=== PATIENT | female | born 1960 | race Caucasian/White ===

== ENCOUNTER → 2018-05-04 10:33 | Outpatient (CLI) | payer OTHER, SELFPAY ==
[2018-05-04 12:25] LABS: Absolute Lymphocyte Count 1.89 X10^3/ul (0.83-4.51); Absolute Neutrophil Count 6.8 X10^3/uL (2.0-7.7); Basophil# 0.03 X10^3/uL; Basophil% 0.3 % (0-1); Eosinophil# 0.05 X10^3/uL; Eosinophils% 0.5 % (0-5); Hematocrit 42.5 % (37-47); Hemoglobin 14.2 g/dl (12.0-15.0); Lymphocyte # 1.89 X10^3/ul (4.0); Lymphocyte % 19.9 % (19-41); Mean Corp Hgb Conc 33.4 g/gl (32-36); Mean Corpuscular Hgb 31.5 pg (27.0-32.0); Mean Corpuscular Volume 94.2 fL (81-99); Mean Platelet Vol. 10.7 fl (6.2-12.0); Monocyte# 0.68 X10^3/uL; Monocyte% 7.2 % (0-10); Neutrophil # 6.82 X10^3/uL (2.7-7.7); Neutrophil % 71.9 % (47-70); Platelet Count 285 K/mm3 (150-450); RBC Distribution Width CV 13.3 % (11.6-14.6); RBC Distribution Width SD 44.4 fl (35.1-43.9); Red Blood Count 4.51 M/mm3 (4.2-5.4); White Blood Count 9.5 K/mm3 (4.4-11.0)
[2018-05-04 12:26] LABS: POSITIVE COUNT NO; POSITIVE DIFFERENTIAL NO; POSITIVE MORPHOLOGY NO
[2018-05-04 12:53] LABS: Vitamin B12 471 pg/mL (211-911)
[2018-05-04 12:54] LABS: ALB/GLOB Ratio 1.1 RATIO (0.9-2.4); AST(SGOT) 21 U/L (15-37); Alanine Aminotransfer ALT/SGPT 26 U/L (13-56); Albumin, Serum 3.9 g/dL (3.2-5.0); Alkaline Phosphatase 116 U/L (45-117); Anion Gap 6 (5-15); BUN 13 mg/dL (7-18); BUN/Creat Ratio 23.9 RATIO (10-20); Calcium,Total 8.7 mg/dL (8.5-10.1); Chloride 106 mmol/L (98-107); Creatinine, Serum 0.54 mg/dL (0.55-1.02); EST Glomerular Filtration Rate 123 mL/min (>60); Est Glom Filt Rate - Afr Amer 149 mL/min (>60); Globulin 3.5 g/dL (2.2-4.2); Glucose 91 mg/dL (74-106); Potassium 4.1 mmol/L (3.5-5.1); Protein, Total 7.4 g/dL (6.4-8.2); Sodium Level 139 mmol/L (136-145); T4 Free Direct 0.83 ng/dL (0.76-1.46); Thyroid Stim Hormone (TSH) 2.11 uIU/mL (0.358-3.74)
== END ==
PROVIDERS: Family Provider Family Medicine; PCP Family Medicine; Visit Provider Family Medicine
DX: K52.9 Noninfective gastroenteritis and colitis, unspecified (principal); F41.9 Anxiety disorder, unspecified; F32.9 Major depressive disorder, single episode, unspecified; R53.83 Other fatigue
CPT/HCPCS: 36415; 80053; 82607; 84439; 84443; 85025

== ENCOUNTER → 2018-09-17 07:11 | Outpatient (CLI) | payer MEDICAID, SELFPAY ==
--- NOTE | 2018-09-17 07:15 | AAVD_ITS ---
Reason For Study: atherosclerois of aorta, rt illiac stenosis/stent. Aorta Measurements Proximal aorta measures1.77 x 1.78cm. in cross- sectional axis. Proximal aorta measures2.0cm. in longitudinal axis. Mid aorta measures1.55 x 1.56cm. in cross- sectional axis. Mid aorta measures1.52cm. in longitudinal axis. Distal aorta measures1.49 x 1.5cm. in cross- sectional axis. Distal aorta measures1.4cm. in longitudinal axis. Left Iliac Artery Left iliac artery measures 0.65 cm. in the longitudinal axis. Left iliac artery measures 0.67 x 0.75 cm. in the cross-sectional axis. Right Iliac Artery Right iliac artery measures 0.63 cm. in the longitudinal axis. Right iliac artery measures 0.65 x 0.64 cm. in the cross-sectional axis. Procedure Aorta IVC Iliac vasculature or bypass grafts [id number]. Exam performed in department. Interpretation Summary 1. no aortoiliac stenosis or aneurysm. Ordering Physician: Beni Judd Referring Physician: Beni Judd Performed By: Susie Everett, HAILEY, RVT
--- NOTE | 2018-09-17 07:15 | ART_ITS ---
Reason For Study: atherosclerosis Procedure A bilateral lower extremity continuous wave Doppler with analog waveform analysis and ankle brachial indexes. Left Segmental Pressures Left brachial= 118mmHg. Left posterior tibial artery = 142mmHg. Left dorsalis pedis artery = 150mmHg. Right Segmental Pressures Right brachial= 123mmHg. Right posterior tibial artery = 140mmHg. Right dorsalis pedis artery = 141mmHg. Indices The right ankle brachial index by the dorsalis pedis is 1.15. The right ankle brachial index by the posterior tibial artery is 1.14. The left ankle brachial index by the dorsalis pedis is 1.22. The left ankle brachial index by the posterior tibial artery is 1.15. Interpretation Summary 1. No evidence occlussive disease at rest with triphasic flow and joe 1.15/1.22. Ordering Physician: Beni Judd Referring Physician: Beni Judd Performed By: Susie Everett RVT, [facility]
--- NOTE | 2018-09-17 07:16 | ADUL_ITS ---
Right Velocities Ext. Iliac Artery, dist = 182.7 cm./sec. Common Femoral Artery, mid = 110.8 cm./sec. Supf Femoral Artery, prox = 81.4 cm./sec. Supf Femoral Artery, mid = 81.4 cm./sec. Supf Femoral Artery, dist. = 96.1 cm./sec. Profunda Femoral Artery = 82.6 cm./sec. Popliteal Artery, prox. = 49.4 cm./sec. Popliteal Artery, mid = 61.4 cm./sec. Popliteal Artery, dist = 77.9 cm./sec. Post. Tibial Artery, prox = 74.6 cm./sec. Post. Tibial Artery, mid = 65.4 cm./sec. Post. Tibial Artery, dist = 71.3 cm./sec. Peroneal Artery, prox = 58.1 cm./sec. Peroneal Artery, mid = 49.3 cm./sec. Peroneal Artery,dist = 46.0 cm./sec. Ant. Tibial Artery, prox = 64.6 cm./sec. Ant. Tibial Artery, mid = 54.8 cm./sec. Ant. Tibial Artery, dist = 59.2 cm./sec. Procedure The exam was diagnostic. Exam performed in department. Comments Images #[id number] &#51 are mislabeled. Correct label is Right CORY Prox. Interpretation Summary 1. right leg no stenosis and triphasic flow. Ordering Physician: Beni Judd Referring Physician: Beni Judd Performed By: Susie Everett, HAILEY, RVT
== END ==
PROVIDERS: Family Provider Family Medicine; PCP Family Medicine; Referring Provider Surgery Vascular Surgery; Visit Provider Surgery Vascular Surgery
DX: I70.0 Atherosclerosis of aorta (principal); I77.1 Stricture of artery; I70.213 Atherosclerosis of native arteries of extremities with intermittent claudication, bilateral legs
CPT/HCPCS: 93922; 93926; 93978

== ENCOUNTER → 2019-03-02 | Outpatient (CLI) | payer MEDICAID, SELFPAY ==
[2019-01-31 13:04] VITALS: BMI 21.7
== END | disposition home or self-care (01) ==
LOC: SL 20:13
PROVIDERS: Family Provider Family Medicine; PCP Family Medicine; Referring Provider Internal Medicine Critical Care Medicine; Visit Provider Internal Medicine Critical Care Medicine
DX: G47.19 Other hypersomnia (principal); G47.34 Idiopathic sleep related nonobstructive alveolar hypoventilation
CPT/HCPCS: 95810

== ENCOUNTER → 2019-03-31 | Outpatient (CLI) | payer MEDICAID, SELFPAY ==
[2019-01-31 13:04] VITALS: BMI 21.7
[2019-03-31 08:33] VITALS: PULSE 102; PULSE 88; PULSE 89; PULSE 90; PULSE 91; PULSE 94; PULSE 99; O2SAT 95; O2SAT 96; O2SAT 97; O2SAT 98
--- NOTE | 2019-03-31 15:53 | PCM.PSN.6M ---
PSN 6 Minute Walk Test - 6 Minute Walk Test 6 Minute Walk Test: 6 Minute Walk Test PSN:6-Minute Walk Test Start: 03/31/19 08:33 Freq: Status: Active Protocol: RESP.6MINW Document 03/31/19 08:33 HG (Rec: 03/31/19 08:36 HG [id number]) 6 Minute Walk Test Date Performed 03/31/19 Time Performed 08:30 Height 5 ft 7 in Weight: 63.503 kg Weight in Pounds 140.[address]: Ester Hernandez Assistive device used: None Pre-test Oxygen Delivery Method Room Air Pulse Ox (%) 96 Pulse Rate (60-100 beats/min) 88 Dyspnea Abe Scale (0-10) 1 Exertion Abe Scale (6-20) 6 1st minute Oxygen Delivery Method Room Air Pulse Ox (%) 97 Pulse Rate (60-100 beats/min) 99 2nd minute Oxygen Delivery Method Room Air Pulse Ox (%) 95 Pulse Rate (60-100 beats/min) 102 H 3rd minute Oxygen Delivery Method Room Air Pulse Ox (%) 98 Pulse Rate (60-100 beats/min) 94 4th minute Oxygen Delivery Method Room Air Pulse Ox (%) 97 Pulse Rate (60-100 beats/min) 94 5th minute Oxygen Delivery Method Room Air Pulse Ox (%) 96 Pulse Rate (60-100 beats/min) 91 6th minute Oxygen Delivery Method Room Air Pulse Ox (%) 97 Pulse Rate (60-100 beats/min) 90 Post-test Oxygen Delivery Method Room Air Pulse Ox (%) 98 Pulse Rate (60-100 beats/min) 89 Dyspnea Abe Scale (0-10) 1 Exertion Abe Scale (6-20) 6 Full Laps Walked 18 Partial Lap, Number of Tiles Walked 0 Total Distance Walked (ft) 1062 - Interpretation Interpretation: The patient was able to ambulate 1062 feet over the course of 6 minutes on room air with no assistive devices or breaks. The patient experienced no significant desaturation or tachycardia. These findings are consistent with a musculoskeletal limitation exercise tolerance. - Recommendations Recommendations: No supplemental oxygen is indicated at this time.
== END | disposition home or self-care (01) ==
LOC: PSN 08:16
PROVIDERS: Family Provider Family Medicine; PCP Family Medicine; Referring Provider Nurse Practitioner Acute Care; Visit Provider Nurse Practitioner Acute Care
DX: J44.9 Chronic obstructive pulmonary disease, unspecified (principal)
CPT/HCPCS: 94618

== ENCOUNTER → 2019-04-08 | Outpatient (CLI) | payer MEDICAID, SELFPAY ==
[2019-01-31 13:04] VITALS: BMI 21.7
== END | disposition home or self-care (01) ==
LOC: BFHLAB 13:47
PROVIDERS: Family Provider Family Medicine; PCP Family Medicine; Visit Provider Family Medicine
DX: N10 Acute pyelonephritis (principal)
CPT/HCPCS: 87086; 87088

== ENCOUNTER → 2019-05-13 10:12 | Outpatient (CLI) | payer MEDICAID, SELFPAY ==
[2019-05-13 09:52] VITALS: BMI 21.7
[2019-05-13 10:56] LABS: Hemoglobin 15.4 g/dL (12.0-15.0); Mean Corp Hgb Conc 33.5 g/dL (32-36); Mean Corpuscular Hgb 31.4 pg (27.0-32.0); Mean Corpuscular Volume 93.7 fL (81-99); Mean Platelet Vol. 9.3 fl (6.2-12.0); Platelet Count 283 K/mm3 (150-450); RBC Distribution Width CV 12.6 % (11.6-14.6); RBC Distribution Width SD 43.8 fl (35.1-43.9); Red Blood Count 4.91 M/mm3 (4.2-5.4); White Blood Count 7.9 K/mm3 (4.4-11.0)
[2019-05-13 11:16] LABS: Ferritin 165 ng/mL (8-252); Iron Binding Capacity,Total 384 ug/dL (250-450)
[2019-05-16 21:17] LABS: Vitamin D 1,25-Dihydroxy 40.5 pg/mL (19.9-79.3)
== END ==
PROVIDERS: Family Provider Family Medicine; PCP Family Medicine; Referring Provider Nurse Practitioner Acute Care; Visit Provider Nurse Practitioner Acute Care
DX: G47.19 Other hypersomnia (principal)
CPT/HCPCS: 36415; 82652; 82728; 83550; 85027

== ENCOUNTER → 2020-09-21 08:37 | Outpatient (CLI) | payer MEDICAID, SELFPAY ==
[2019-05-13 09:52] VITALS: BMI 21.7
--- NOTE | 2020-09-21 08:41 | ADUL_ITS ---
Reason For Study: Tobacco Use Right Velocities Ext. Iliac Artery, dist = 181 cm./sec. Common Femoral Artery, mid = 117 cm./sec. Supf Femoral Artery, prox = 76 cm./sec. Supf Femoral Artery, mid = 87 cm./sec. Supf Femoral Artery, dist. = 74 cm./sec. Profunda Femoral Artery = 85 cm./sec. Popliteal Artery, prox. = 60 cm./sec. Popliteal Artery, mid = 54 cm./sec. Popliteal Artery, dist = 56 cm./sec. Ant. Tibial Artery, prox = 39 cm./sec. Ant. Tibial Artery, mid = 52 cm./sec. Ant. Tibial Artery, dist = 67 cm./sec. Post. Tibial Artery, prox = 60 cm./sec. Post. Tibial Artery, mid = 63 cm./sec. Post. Tibial Artery, dist = 50 cm./sec. Peroneal Artery, prox = 41 cm./sec. Peroneal Artery, mid = 32 cm./sec. Peroneal Artery,dist = 19 cm./sec. Rt DPA: 63 cm/s. Procedure Exam performed in department. /US Art Duplex Unilat Lower Ext Interpretation Summary Right leg with triphasic flow and no stenosis. Ordering Physician: Beni Judd Referring Physician: Herson Curiel Performed By: Juana Hurley, HAILEY, RVT
--- NOTE | 2020-09-21 08:42 | AAVD_ITS ---
Reason For Study: Tobacco Use Aorta Measurements Aorta Doppler Measurements Proximal aorta measures2.74cm x 2.55cm. in cross- Peak systolic flow velocities within the proximal sectional axis. aorta measure 74 cm/sec. Proximal aorta measures2.34cm. in longitudinal Peak systolic flow velocities within the mid aorta axis. measure 62 cm/sec. Mid aorta measures1.74cm x 1.57cm. in cross- Peak systolic flow velocities within the distal sectional axis. aorta measure 70 cm/sec. Mid aorta measures1.62cm. in longitudinal axis. Distal aorta measures1.48cm x 1.50cm. in cross- sectional axis. Distal aorta measures1.29cm. in longitudinal axis. Left Iliac Artery Left iliac artery measures 0.74cm x 0.75 cm. in the cross-sectional axis. Left iliac artery measures 0.71 cm. in the longitudinal axis. Peak systolic velocity in the left iliac artery measures 127 cm/sec. Right Iliac Artery Right iliac artery measures 0.60cm x 0.55 cm. in the cross-sectional axis. Right iliac artery measures 0.55 cm. in the longitudinal axis. Peak systolic velocity in the right iliac artery measures 203 cm/sec. Procedure Aorta IVC Iliac vasculature or bypass grafts [id number]. Exam performed in department. VL/Abd Aortic/IVC Duplex scan Interpretation Summary Aortoiliac with no stenosis and no aneurysm. Ordering Physician: Beni Judd Referring Physician: Herson Curiel Performed By: Juana Hurley, HAILEY, RVT
== END ==
PROVIDERS: PCP Family Medicine; Referring Provider Surgery Vascular Surgery; Visit Provider Surgery Vascular Surgery
DX: I70.213 Atherosclerosis of native arteries of extremities with intermittent claudication, bilateral legs (principal); F17.200 Nicotine dependence, unspecified, uncomplicated
CPT/HCPCS: 93922; 93926; 93978

== ENCOUNTER → 2020-10-09 07:44 | Outpatient (CLI) | payer MEDICAID, SELFPAY ==
[2019-05-13 09:52] VITALS: BMI 21.7
[2020-10-09 10:12] LABS: Absolute Lymphocyte Count 2.25 X10^3/uL (0.83-4.51); Absolute Neutrophil Count 3.7 X10^3/uL (2.0-7.7); Basophil# 0.05 X10^3/uL; Basophil% 0.7 % (0-1); Eosinophil# 0.12 X10^3/uL; Eosinophils% 1.8 % (0-5); Hematocrit 48.5 % (37-47); Hemoglobin 15.6 g/dL (12.0-15.0); Lymphocyte # 2.25 X10^3/ul (0.83-4.51); Lymphocyte % 33.6 % (19-41); Mean Corp Hgb Conc 32.2 g/dL (32-36); Mean Corpuscular Hgb 29.5 pg (27.0-32.0); Mean Corpuscular Volume 91.7 fL (81-99); Mean Platelet Vol. 9.9 fl (6.2-12.0); Monocyte# 0.61 X10^3/uL; Monocyte% 9.1 % (0-10); NRBC Flagged by Analyzer 0 % (0-5); Neutrophil # 3.65 X10^3/uL (2.7-7.7); Neutrophil % 54.5 % (47-70); Platelet Count 257 K/mm3 (150-450); RBC Distribution Width CV 13.9 % (11.6-14.6); RBC Distribution Width SD 47.3 fl (35.1-43.9); Red Blood Count 5.29 M/mm3 (4.2-5.4); White Blood Count 6.7 K/mm3 (4.4-11.0)
[2020-10-09 10:38] LABS: AST(SGOT) 25 U/L (15-37); Alanine Aminotransfer ALT/SGPT 32 U/L (13-56); Albumin, Serum 3.9 g/dL (3.2-5.0); Alkaline Phosphatase 116 U/L (45-117); Anion Gap 5 (5-15); BUN 14 mg/dL (7-18); BUN/Creat Ratio 29.8 RATIO (10-20); Calcium,Total 9.3 mg/dL (8.5-10.1); Chloride 101 mmol/L (98-107); Cholesterol 214 mg/dL (200); Creatinine, Serum 0.47 mg/dL (0.55-1.02); EST Glomerular Filtration Rate 144 mL/min (>60); Est Glom Filt Rate - Afr Amer 174 mL/min (>60); Globulin 3.8 g/dL (2.2-4.2); Glucose 94 mg/dL (74-106); High Density Lipoprotein 60 mg/dL; Protein, Total 7.7 g/dL (6.4-8.2); Sodium Level 136 mmol/L (136-145); T4 Free Direct 0.86 ng/dL (0.76-1.46); Thyroid Stim Hormone (TSH) 2.13 uIU/mL (0.358-3.74); Triglycerides 170 mg/dL; Very Low Density Lipoprotein 34 mg/dL (5-40)
== END ==
PROVIDERS: PCP Family Medicine; Referring Provider Family Medicine; Visit Provider Family Medicine
DX: G25.81 Restless legs syndrome (principal); F41.9 Anxiety disorder, unspecified; R53.83 Other fatigue
CPT/HCPCS: 36415; 80053; 80061; 84439; 84443; 85025

== ENCOUNTER → 2021-12-03 | Outpatient (CLI) | payer MEDICAID, SELFPAY ==
--- NOTE | 2021-12-03 08:07 | AAVD_ITS ---
Reason For Study: atherosclerosis with claudication, S/P R iliac stent Aorta Measurements Aorta Doppler Measurements Proximal aorta measures2.43 x 2.61cm. in cross- Peak systolic flow velocities within the proximal sectional axis. aorta measure 57.2 cm/sec. Proximal aorta measures2.28cm. in longitudinal Peak systolic flow velocities within the mid aorta axis. measure 62.5 cm/sec. Mid aorta measures1.75 x 1.9cm. in cross-sectionalPeak systolic flow velocities within the distal axis. aorta measure 69.5 cm/sec. Mid aorta measures1.71cm. in longitudinal axis. Distal aorta measures1.02 x 1.12cm. in cross- sectional axis. Distal aorta measures1.01cm. in longitudinal axis. Left Iliac Artery Left iliac artery measures .66 x .68 cm. in the cross-sectional axis. Left iliac artery measures .67 cm. in the longitudinal axis. Peak systolic velocity in the left iliac artery measures 67.1 cm/sec. Right Iliac Artery Right iliac artery measures .47 x .45 cm. in the cross-sectional axis. Right iliac artery measures .49 cm. in the longitudinal axis. Peak systolic velocity in the right iliac artery measures 89.2 cm/sec. Procedure Aorta IVC Iliac vasculature or bypass grafts [id number]. The exam was diagnostic. Exam performed in department. VL/Abd Aortic/IVC Duplex scan Interpretation Summary No evidence of aortic iliac stenosis or aneurysm. Ordering Physician: Beni Judd Performed By: Darrell Landry RVT
--- NOTE | 2021-12-03 08:08 | ADUL_ITS ---
Reason For Study: atherosclerosis with claudication, S/P R iliac stent Right Velocities Ext. Iliac Artery, dist = 165.5 cm./sec. Common Femoral Artery, mid = 97.9 cm./sec. Supf Femoral Artery, prox = 101.5 cm./sec. Supf Femoral Artery, mid = 90.4 cm./sec. Supf Femoral Artery, dist. = 68.3 cm./sec. Profunda Femoral Artery = 101.5 cm./sec. Popliteal Artery, mid = 59.7 cm./sec. Ant. Tibial Artery, prox = 74.4 cm./sec. Ant. Tibial Artery, mid = 43.5 cm./sec. Ant. Tibial Artery, dist = 62.2 cm./sec. Post. Tibial Artery, prox = 63.4 cm./sec. Post. Tibial Artery, mid = 48.6 cm./sec. Post. Tibial Artery, dist = 62.1 cm./sec. Peroneal Artery, prox = 47.4 cm./sec. Peroneal Artery, mid = 42.5 cm./sec. Peroneal Artery,dist = 37.6 cm./sec. Procedure The exam was diagnostic. Exam performed in department. VL/US Art Duplex Unilat Lower Ext Interpretation Summary Right lower extremity with triphasic flow noted throughout the entire leg. No s tenosis noted. Ordering Physician: Beni Judd Performed By: Darrell Landry RVT
--- NOTE | 2021-12-03 08:09 | ART_ITS ---
Reason For Study: atherosclerosis with claudication, S/P R iliac stent Procedure A bilateral lower extremity continuous wave Doppler with analog waveform analysis and ankle brachial indexes. Left Segmental Pressures Left brachial= 141mmHg. Left posterior tibial artery = 147mmHg. Left dorsalis pedis artery = 141mmHg. The left dorsalis pedis waveforms are triphasic. The left posterior tibial artery waveforms are triphasic. Right Segmental Pressures Right brachial= 135mmHg. Right posterior tibial artery = 152mmHg. Right dorsalis pedis artery = 131mmHg. The right dorsalis pedis waveforms are triphasic. The right posterior tibial artery waveforms are triphasic. Indices The right ankle brachial index by the dorsalis pedis is .93. The right ankle brachial index by the posterior tibial artery is 1.08. The left ankle brachial index by the posterior tibial artery is 1.04. The left ankle brachial index by the dorsalis pedis is 1.0. VL/Ankle Brachial Index Interpretation Summary Bilateral triphasic flow noted at the ankle with an MYRANDA 1.08 and 1.04. Ordering Physician: Beni Judd Performed By: Darrell Landry RVT
== END | disposition home or self-care (01) ==
LOC: CVS 08:05
PROVIDERS: PCP Family Medicine; Referring Provider Surgery Vascular Surgery; Visit Provider Surgery Vascular Surgery
DX: I70.213 Atherosclerosis of native arteries of extremities with intermittent claudication, bilateral legs (principal); F17.200 Nicotine dependence, unspecified, uncomplicated; Z48.812 Encounter for surgical aftercare following surgery on the circulatory system
CPT/HCPCS: 93922; 93926; 93978

== ENCOUNTER → 2022-05-19 | Outpatient (CLI) | payer MEDICAID, SELFPAY ==
[2022-05-19 12:28] LABS: Absolute Lymphocyte Count 2.77 X10^3/uL (0.83-4.51); Absolute Neutrophil Count 7.3 X10^3/uL (2.0-7.7); Basophil# 0.05 X10^3/uL; Basophil% 0.5 % (0-1); Eosinophil# 0.11 X10^3/uL; Hematocrit 48.5 % (37-47); Lymphocyte # 2.77 X10^3/ul (0.83-4.51); Mean Corpuscular Hgb 31.3 pg (27.0-32.0); Mean Corpuscular Volume 94.7 fL (81-99); Mean Platelet Vol. 10.2 fl (6.2-12.0); Monocyte# 0.78 X10^3/uL; Monocyte% 7.1 % (0-10); NRBC Flagged by Analyzer 0 % (0-5); Neutrophil # 7.32 X10^3/uL (2.7-7.7); Neutrophil % 66.1 % (47-70); Platelet Count 313 K/mm3 (150-450); RBC Distribution Width CV 13.3 % (11.6-14.6); RBC Distribution Width SD 46.5 fl (35.1-43.9); Red Blood Count 5.12 M/mm3 (4.2-5.4); White Blood Count 11.1 K/mm3 (4.4-11.0)
[2022-05-19 13:05] LABS: ALB/GLOB Ratio 1.2 RATIO (0.9-2.4); AST(SGOT) 21 U/L (15-37); Alanine Aminotransfer ALT/SGPT 31 U/L (13-56); Albumin, Serum 4.3 g/dL (3.2-5.0); Alkaline Phosphatase 93 U/L (45-117); Anion Gap 4 (5-15); BUN 16 mg/dL (7-18); BUN/Creat Ratio 32.6 RATIO (10-20); Calcium,Total 9.7 mg/dL (8.5-10.1); Chloride 100 mmol/L (98-107); Cholesterol 256 mg/dL (200); Creatinine, Serum 0.49 mg/dL (0.55-1.02); EST Glomerular Filtration Rate 136 mL/min (>60); Est Glom Filt Rate - Afr Amer 165 mL/min (>60); Globulin 3.7 g/dL (2.2-4.2); Glucose 91 mg/dL (74-106); High Density Lipoprotein 60 mg/dL; Magnesium 2.1 mg/dL (1.6-2.6); Potassium 4.1 mmol/L (3.5-5.1); Sodium Level 135 mmol/L (136-145); Thyroid Stim Hormone (TSH) 3.78 uIU/mL (0.358-3.74); Triglycerides 382 mg/dL; Very Low Density Lipoprotein 76 mg/dL (5-40)
== END | disposition home or self-care (01) ==
LOC: BFHLAB 08:42
PROVIDERS: PCP Family Medicine; Visit Provider Family Medicine
DX: Z00.00 Encounter for general adult medical examination without abnormal findings (principal); R53.83 Other fatigue
CPT/HCPCS: 36415; 80053; 80061; 83735; 84443; 85025

== ENCOUNTER → 2022-05-26 | Outpatient (CLI) | payer MEDICAID, SELFPAY ==
--- NOTE | 2022-05-26 14:56 | CDU_ITS ---
Reason For Study: PVD Rt. Velocities/BP Lt. Velocities/BP Prox CCA 86.3/23.9 cm/sec. Prox CCA 109.7/34.8 cm/sec. Mid CCA 86.3/26.7 cm/sec. Mid CCA 109.7/28.6 cm/sec. Dist CCA 79.6/26.7 cm/sec. Dist CCA 82.6/22.5 cm/sec. Prox ICA 96/32.2 cm/sec. Prox ICA 74/27.4 cm/sec. Mid ICA 102.5/36.6 cm/sec. Mid ICA 90/39.7 cm/sec. Dist ICA 108.4/47 cm/sec. Dist ICA 107.2/42.1 cm/sec. Rt. ICA/CCA = 1.26. Lt. ICA/CCA = 0.98. Prox ECA 87.2/17.9 cm/sec. Prox ECA 102.3 cm/sec. Rt. Vert. 65.4/18.8 cm/sec. Lt. Vert. 70.4/26.2 cm/sec. Right Extracranial There is heterogeneous, irregular atherosclerotic plaque noted in the right common carotid artery. There is heterogeneous, irregular atherosclerotic plaque noted in the right internal carotid artery. There is intimal thickening but no significant atherosclerotic plaque noted in the right external carotid artery. Antegrade flow is noted in the right vertebral artery. Left Extracranial There is homogeneous, smooth atherosclerotic plaque noted in the left common carotid artery. There is heterogeneous, irregular atherosclerotic plaque noted in the left internal carotid artery. There is intimal thickening but no significant atherosclerotic plaque noted in the left external carotid artery. Antegrade flow is noted in the left vertebral artery. Procedure Carotid Duplex [id number]. This is a Carotid Duplex examination using B-mode, color flow and specral Doppler. Exam performed in department. VL/Carotid Duplex Ultrasound Interpretation Summary Mild (<50%) stenosis right extracranial internal carotid. Mild (<50%) stenosis left extracranial internal carotid. Flow within the vertebral arteries is antegrade bilaterally. Ordering Physician: Dena Adam Referring Physician: Herson Curiel Performed By: Rosalind Barroso RVT
== END | disposition home or self-care (01) ==
LOC: CVS 14:56
PROVIDERS: PCP Family Medicine; Visit Provider Family Medicine
DX: I73.9 Peripheral vascular disease, unspecified (principal); I65.23 Occlusion and stenosis of bilateral carotid arteries
CPT/HCPCS: 93880

== ENCOUNTER → 2022-08-08 | Outpatient (CLI) | payer MEDICAID, SELFPAY ==
[2022-08-08 18:29] LABS: Free T3 2.5 pg/mL (2.18-3.98); T4 Free Direct 0.96 ng/dL (0.76-1.46); Thyroid Stim Hormone (TSH) 1.79 uIU/mL (0.358-3.74)
== END | disposition home or self-care (01) ==
LOC: BFHLAB 14:38
PROVIDERS: PCP Family Medicine; Visit Provider Family Medicine
DX: E03.9 Hypothyroidism, unspecified (principal)
CPT/HCPCS: 36415; 84439; 84443; 84481

== ENCOUNTER → 2022-08-12 | Outpatient (CLI) | payer MEDICAID, SELFPAY ==
--- NOTE | 2022-08-12 13:38 | BI_ITS ---
MAMMOGRAPHY - BILATERAL SCREENING REASON FOR EXAM: Female, 61 years old. Routine annual screening examination. PERTINENT HISTORY: Non-contributory. Remote right stereotactic breast biopsy. TECHNIQUE: Digital bilateral breast monica (3D mammographic acquisition) in the CC and MLO projections. 2-D mediolateral oblique (MLO) and craniocaudad (CC) views of both breasts were obtained. CAD: Full Field Digital Mammography with Computer Added Detection was performed. COMPARISON: No comparison mammograms available at this time. If any prior films become available, an addendum to this report can be generated. FINDINGS: Breast Composition: The breasts are heterogeneously dense, which may obscure small masses. There are no dominant masses or suspicious calcifications. A tissue clip marker is seen in the deep upper lateral aspect of the right breast. 4.9 mm calcifying fibroadenoma in the central retroareolar region of the left breast. No other significant abnormalities are identified. BI/SCRN MAMM (CAD)W/MONICA BILAT IMPRESSION: Negative screening mammogram. Yearly followup mammogram recommended. (A) ASSESSMENT CATEGORY: BIRADS Category 2: Benign. A letter regarding these results will be sent to the patient by the facility within 30 days. Approximately 10% of breast cancers are not detected by mammography. A normal mammogram should not delay biopsy of a clinically suspicious abnormality. [id number] Electronically Signed: Suresh Mendez MD at 14:57 EST ,
== END | disposition home or self-care (01) ==
LOC: OPBI 13:36
PROVIDERS: PCP Family Medicine; Referring Provider Family Medicine; Visit Provider Family Medicine
DX: Z12.31 Encounter for screening mammogram for malignant neoplasm of breast (principal)
CPT/HCPCS: 77063; 77067

== ENCOUNTER → 2022-12-09 | Outpatient (CLI) | payer MEDICAID, SELFPAY ==
--- NOTE | 2022-12-09 08:47 | CDU_ITS ---
Reason For Study: Carotid stenosis Rt. Velocities/BP Lt. Velocities/BP Prox CCA 65.5/23 cm/sec. Prox CCA 91.9/29.8 cm/sec. Mid CCA 76.8/28.6 cm/sec. Mid CCA 80.9/27.9 cm/sec. Dist CCA 73/29.6 cm/sec. Dist CCA 93.7/31.6 cm/sec. Prox ICA 104.7/42.6 cm/sec. Prox ICA 59/22.5 cm/sec. Mid ICA 88.2/33.4 cm/sec. Mid ICA 117.4/48 cm/sec. Dist ICA 86.4/38.9 cm/sec. Dist ICA 84.6/37.1 cm/sec. Rt. ICA/CCA = 1.43. Lt. ICA/CCA = 1.28. Prox ECA 110.1/24.3 cm/sec. Prox ECA 104.7/24.3 cm/sec. Rt. Vert. 57.2/22.5 cm/sec. Lt. Vert. 70/24.3 cm/sec. Right Extracranial There is heterogeneous, irregular atherosclerotic plaque noted in the right common carotid artery. There is heterogeneous, irregular atherosclerotic plaque noted in the right internal carotid artery. There is intimal thickening but no significant atherosclerotic plaque noted in the right external carotid artery. Antegrade flow is noted in the right vertebral artery. Left Extracranial There is homogeneous, smooth atherosclerotic plaque noted in the left common carotid artery. There is heterogeneous, irregular atherosclerotic plaque noted in the left internal carotid artery. There is intimal thickening but no significant atherosclerotic plaque noted in the left external carotid artery. Antegrade flow is noted in the left vertebral artery. Procedure Carotid Duplex [id number]. This is a Carotid Duplex examination using B-mode, color flow and specral Doppler. Exam performed in department. VL/Carotid Duplex Ultrasound Interpretation Summary Mild (<50%) stenosis right extracranial internal carotid. Mild (<50%) stenosis left extracranial internal carotid. Flow within the vertebral arteries is antegrade bilaterally. Ordering Physician: Beni Judd Referring Physician: Dena Adam Performed By: Rosalind Barroso RVT
--- NOTE | 2022-12-09 08:47 | ART_ITS ---
Reason For Study: Atherosclerosis Procedure A bilateral lower extremity continuous wave Doppler with analog waveform analysis and ankle brachial indexes. Left Segmental Pressures Left brachial= 139mmHg. Left posterior tibial artery = 137mmHg. Left dorsalis pedis artery = 146mmHg. The left dorsalis pedis waveforms are triphasic. The left posterior tibial artery waveforms are triphasic. Right Segmental Pressures Right brachial= 135mmHg. Right posterior tibial artery = 140mmHg. Right dorsalis pedis artery = 151mmHg. The right dorsalis pedis waveforms are triphasic. The right posterior tibial artery waveforms are triphasic. Indices The right ankle brachial index by the dorsalis pedis is 1.09. The right ankle brachial index by the posterior tibial artery is 1.01. The left ankle brachial index by the dorsalis pedis is 1.05. The left ankle brachial index by the posterior tibial artery is 0.99. VL/Ankle Brachial Index Interpretation Summary Bilateral normal atr rest with triphasic flow and MYRANDA 1.09/1.05. Ordering Physician: Beni Judd Referring Physician: Dena Adam Performed By: Rosalind Barroso RVT
--- NOTE | 2022-12-09 08:47 | AAVD_ITS ---
Reason For Study: Right iliac stent Aorta Measurements Aorta Doppler Measurements Proximal aorta measures2.74 x 2.78cm. in cross- Peak systolic flow velocities within the proximal sectional axis. aorta measure 72.3 cm/sec. Proximal aorta measures2.64cm. in longitudinal Peak systolic flow velocities within the mid aorta axis. measure 70.5 cm/sec. Mid aorta measures1.48 x 1.41cm. in cross- Peak systolic flow velocities within the distal sectional axis. aorta measure 75.9 cm/sec. Mid aorta measures1.42cm. in longitudinal axis. Distal aorta measures1.58 x 1.57cm. in cross- sectional axis. Distal aorta measures1.58cm. in longitudinal axis. Left Iliac Artery Left iliac artery measures 0.81 x 0.78 cm. in the cross-sectional axis. Left iliac artery measures 0.78 cm. in the longitudinal axis. Peak systolic velocity in the left iliac artery measures 140.3 cm/sec. Right Iliac Artery Right iliac artery measures 0.61 x 0.60 cm. in the cross-sectional axis. Right iliac artery measures 0.61 cm. in the longitudinal axis. Peak systolic velocity in the right iliac artery measures 164.4 cm/sec. Procedure Aorta IVC Iliac vasculature or bypass grafts [id number]. Exam performed in department. VL/Abd Aortic/IVC Duplex scan Interpretation Summary Aorta iliac no stenosis or aneurysm. Ordering Physician: Beni Judd Referring Physician: Dena Adam Performed By: Rosalind Barroso RVT
== END | disposition home or self-care (01) ==
PROVIDERS: PCP Family Medicine; Referring Provider Surgery Vascular Surgery; Visit Provider Surgery Vascular Surgery
DX: I65.23 Occlusion and stenosis of bilateral carotid arteries (principal); I70.213 Atherosclerosis of native arteries of extremities with intermittent claudication, bilateral legs; Z48.812 Encounter for surgical aftercare following surgery on the circulatory system; F17.200 Nicotine dependence, unspecified, uncomplicated
CPT/HCPCS: 93880; 93922; 93978

== ENCOUNTER → 2023-05-29 | Outpatient (CLI) | payer MEDICAID, SELFPAY ==
[2023-06-04 11:08] LABS: Age Gdln ACOG Testing 30-65 (.); HPV APTIMA, High Risk Negative (Negative)
[2023-06-04 19:14] LABS: HPV Reflexed? YES, CHARGE PATIENT
== END | disposition home or self-care (01) ==
PROVIDERS: PCP Family Medicine; Referring Provider Family Medicine; Visit Provider Family Medicine
DX: Z12.4 Encounter for screening for malignant neoplasm of cervix (principal)
CPT/HCPCS: 87624; 88175; G0145

== ENCOUNTER → 2023-06-22 | Outpatient (CLI) | payer MEDICAID, SELFPAY ==
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
[2023-06-22 12:21] LABS: Absolute Lymphocyte Count 1.69 X10^3/uL (0.83-4.51); Absolute Neutrophil Count 5.6 X10^3/uL (2.0-7.7); Basophil# 0.05 X10^3/uL; Basophil% 0.6 % (0-1); Eosinophil# 0.07 X10^3/uL; Eosinophils% 0.9 % (0-5); Hematocrit 44.7 % (37-47); Hemoglobin 14.5 g/dL (12.0-15.0); Lymphocyte # 1.69 X10^3/ul (0.83-4.51); Mean Corp Hgb Conc 32.4 g/dL (32-36); Mean Corpuscular Hgb 30.4 pg (27.0-32.0); Mean Corpuscular Volume 93.7 fL (81-99); Mean Platelet Vol. 10.4 fl (6.2-12.0); Monocyte# 0.58 X10^3/uL; Monocyte% 7.2 % (0-10); NRBC Flagged by Analyzer 0 % (0-5); Neutrophil # 5.62 X10^3/uL (2.7-7.7); Neutrophil % 69.9 % (47-70); Platelet Count 295 K/mm3 (150-450); RBC Distribution Width CV 13.2 % (11.6-14.6); RBC Distribution Width SD 45.4 fl (35.1-43.9); Red Blood Count 4.77 M/mm3 (4.2-5.4)
[2023-06-22 13:19] LABS: AST(SGOT) 30 U/L (15-37); Alanine Aminotransfer ALT/SGPT 30 U/L (13-56); Albumin, Serum 3.9 g/dL (3.2-5.0); Alkaline Phosphatase 93 U/L (45-117); Anion Gap 4 (5-15); BUN 10 mg/dL (7-18); BUN/Creat Ratio 17.3 RATIO (10-20); Calcium,Total 9.9 mg/dL (8.5-10.1); Chloride 107 mmol/L (98-107); Cholesterol 266 mg/dL (200); Creatinine, Serum 0.58 mg/dL (0.55-1.02); EST Glomerular Filtration Rate 113 mL/min (>60); Est Glom Filt Rate - Afr Amer 136 mL/min (>60); Globulin 3.8 g/dL (2.2-4.2); Glucose 102 mg/dL (74-106); High Density Lipoprotein 68 mg/dL; Potassium 4.1 mmol/L (3.5-5.1); Protein, Total 7.7 g/dL (6.4-8.2); Sodium Level 139 mmol/L (136-145); T4 Free Direct 0.89 ng/dL (0.76-1.46); Thyroid Stim Hormone (TSH) 1.61 uIU/mL (0.358-3.74); Triglycerides 140 mg/dL; Very Low Density Lipoprotein 28 mg/dL (5-40)
[2023-06-23 15:08] LABS: Thyroglobulin Antibody < 1.0 IU/mL (0.0-0.9); Thyroid Peroxidase AB 10 IU/mL (0-34)
== END | disposition home or self-care (01) ==
LOC: BFHLAB 09:25
PROVIDERS: PCP Family Medicine; Referring Provider Family Medicine; Visit Provider Family Medicine
DX: Z00.00 Encounter for general adult medical examination without abnormal findings (principal); R53.83 Other fatigue; I10 Essential (primary) hypertension; E03.9 Hypothyroidism, unspecified
CPT/HCPCS: 36415; 80053; 80061; 84439; 84443; 85025; 86376; 86800

== ENCOUNTER → 2023-12-30 | Outpatient (CLI) | payer MEDICAID, SELFPAY ==
--- NOTE | 2023-12-30 08:51 | CDU_ITS ---
Reason For Study: CAROTID STENOSIS Rt. Velocities/BP Lt. Velocities/BP Prox CCA 80.6/23.9 cm/sec. Prox CCA 94.1/24.1 cm/sec. Mid CCA 84.4/23.9 cm/sec. Mid CCA 92.8/31.4 cm/sec. Dist CCA 75.9/25.8 cm/sec. Dist CCA 68.3/21.6 cm/sec. Prox ICA 112.8/42.5 cm/sec. Prox ICA 100.2/40.0 cm/sec. Mid ICA 96.3/27.1 cm/sec. Mid ICA 106.3/35.1 cm/sec. Dist ICA 113.9/37.0 cm/sec. Dist ICA 113.3/42.1 cm/sec. Rt. ICA/CCA = 113.9/84.4=1.4. Lt. ICA/CCA = 113.3/92.8=1.2. Prox ECA 110.6/21.6 cm/sec. Prox ECA 110.0/21.6 cm/sec. Rt. Vert. 61.9/17.9 cm/sec. Lt. Vert. 67.7/30.3 cm/sec. Right Extracranial There is homogeneous, smooth atherosclerotic plaque noted in the right common carotid artery. There is heterogeneous, irregular atherosclerotic plaque noted in the right internal carotid artery. There is intimal thickening but no significant atherosclerotic plaque noted in the right external carotid artery. Antegrade flow is noted in the right vertebral artery. There is heterogeneous, irregular atherosclerotic plaque noted in the right bulb. Left Extracranial There is homogeneous, smooth atherosclerotic plaque noted in the left common carotid artery. There is heterogeneous, smooth atherosclerotic plaque noted in the left internal carotid artery. There is intimal thickening but no significant atherosclerotic plaque noted in the left external carotid artery. Antegrade flow is noted in the left vertebral artery. There is heterogeneous, irregular atherosclerotic plaque noted in the left bulb. Procedure Carotid Duplex 62250. This is a Carotid Duplex examination using B-mode, color flow and specral Doppler. Exam performed in department. VL/Carotid Duplex Ultrasound Interpretation Summary Mild (<50%) stenosis right extracranial internal carotid. Mild (<50%) stenosis left extracranial internal carotid. Flow within the vertebral arteries is antegrade bilaterally. Ordering Physician: Beni Judd Referring Physician: Dena Adam Performed By: Susie Everett, HAILEY, RVT
--- NOTE | 2023-12-30 08:51 | ART_ITS ---
Reason For Study: atherosclerosis, S/P Illiac stent Procedure A bilateral lower extremity continuous wave Doppler with analog waveform analysis and ankle brachial indexes. Left Segmental Pressures Left brachial= 133mmHg. Left posterior tibial artery = 146mmHg. Left dorsalis pedis artery = 157mmHg. The left posterior tibial artery waveforms are triphasic. The left dorsalis pedis waveforms are triphasic. Right Segmental Pressures Right brachial= 131mmHg. Right posterior tibial artery = 141mmHg. Right dorsalis pedis artery = 149mmHg. The right posterior tibial artery waveforms are triphasic. The right dorsalis pedis waveforms are triphasic. Indices The right resting ankle brachial index is 1.12. The right ankle brachial index by the posterior tibial artery is 1.06. The right ankle brachial index by the dorsalis pedis is 1.12. The left resting ankle brachial index is 1.18. The left ankle brachial index by the posterior tibial artery is 1.10. The left ankle brachial index by the dorsalis pedis is 1.18. VL/Ankle Brachial Index Interpretation Summary Resting ankle-brachial indices appear bilaterally normal. Ordering Physician: Beni Judd Referring Physician: Dena Adam Performed By: Susie Everett RVT, RDCS
--- NOTE | 2023-12-30 08:51 | AAVD_ITS ---
Reason For Study: S/P illiac stent, atherosclerosis, claudication Aorta Measurements Aorta Doppler Measurements Proximal aorta measures2.85 x 2.43cm. in cross- Peak systolic flow velocities within the proximal sectional axis. aorta measure 71.1 cm/sec. Proximal aorta measures2.48cm. in longitudinal Peak systolic flow velocities within the mid aorta axis. measure 74.8 cm/sec. Mid aorta measures1.96 x 1.83cm. in cross- Peak systolic flow velocities within the distal sectional axis. aorta measure 82.1 cm/sec. Mid aorta measures1.77cm. in longitudinal axis. Distal aorta measures1.71 x 1.36cm. in cross- sectional axis. Distal aorta measures1.27cm. in longitudinal axis. Left Iliac Artery Left iliac artery measures 0.81 x 0.76 cm. in the cross-sectional axis. Left iliac artery measures 0.78 cm. in the longitudinal axis. Peak systolic velocity in the left iliac artery measures 120.4 cm/sec. Right Iliac Artery Right iliac artery measures 0.69 x 0.70 cm. in the cross-sectional axis. Right iliac artery measures 0.66 cm. in the longitudinal axis. Peak systolic velocity in the right iliac artery measures 118.5 cm/sec. VL/Abd Aortic/IVC Duplex scan Interpretation Summary No aorta iliac aneurysm or stenosis. Ordering Physician: Beni Judd Referring Physician: Dena Adam Performed By: Susie Everett, RDCS, RVT
== END | disposition home or self-care (01) ==
PROVIDERS: PCP Family Medicine; Referring Provider Surgery Vascular Surgery; Visit Provider Surgery Vascular Surgery
DX: I65.23 Occlusion and stenosis of bilateral carotid arteries (principal); I70.213 Atherosclerosis of native arteries of extremities with intermittent claudication, bilateral legs; F17.200 Nicotine dependence, unspecified, uncomplicated; Z48.812 Encounter for surgical aftercare following surgery on the circulatory system
CPT/HCPCS: 93880; 93922; 93978

== ENCOUNTER 2024-06-02 09:30 | Outpatient (RCR) | payer MEDICAID, SELFPAY ==
[2024-05-19 08:31] VITALS: BP 150/87; PULSE 98; RESP 18; TEMP 36.7; BMI 21.6
--- NOTE | 2024-05-19 09:20 | HP.PCM_ITS ---
History of Present Illness Date of Service: 05/19/24 Chief Complaint: Burn wound right dorsal foot History of Wound: Patient is a 63-year-old female with PMHx of COPD, continued nicotine dependence, PVD with right iliac stent placement 2016, anxiety, depression, Hx of SCC of the cervix, and GERD, who presents to the wound care center today for continued care of ulceration to the dorsal aspect of the right foot secondary to hot grease burn. Patient states that on the evening of 04/23/2024 she was cooking to pork butt roasts and was transferring 1 of these from the smoker to a huang when the hot grease broke through the foil landing on top of her right foot. Patient was only wearing socks at the time of the injury. She states she immediately submerge foot in cold water and the next morning had a large bulla overlying the dorsal aspect of the right forefoot involving the base of digits 1 through 4. She states she did bust the blister with a pair of sterile scissors and cut the skin off and immediately applied Silvadene cream and nonstick dressings. She has continued to change dressing da sergio in addition to soaking foot in soapy water and leaving sites to air dry. She did see her PCP and was placed on oral Keflex. At that time she was also finishing prescription for oral clindamycin for dental procedure. States she has tried to care for the ulceration as best as she could over the last month however site has not been progressing in healing status. She does admit to continued smoking despite previous vascular intervention by Dr. Judd in 2017 in which a right iliac stent was placed at that time. She denies N/V/F/chills. Denies further complaints. [facility] Medical History (Updated 05/19/24 @ 11:[address] Leobardo Henley, [place]) Fatigue GERD (gastroesophageal reflux disease) Cyst of nasal sinus Brachial plexus disorders Thoracic outlet syndrome Squamous cell carcinoma of cervix Tobacco abuse IBS (irritable bowel syndrome) Chronic anxiety Chronic depression COPD (chronic obstructive pulmonary disease) Home Medications ?Medication ?Instructions ?Recorded ?Last Taken ?Type clopidogrel 75 mg tablet (Plavix) 75 mg PO DAILY 01/20/19 Unknown History fluticasone propionate 50 2 spray intranasal DAILY 01/20/19 Unknown History mcg/actuation nasal spray,suspension (Flonase Allergy Relief) lorazepam 0.5 mg tablet (Ativan) 1 mg PO BID PRN anxiety 01/20/19 Unknown History prednisolone acetate 1 % eye 1 drp ophthalmic (eye) .QID 01/20/19 Unknown History drops,suspension sertraline 50 mg tablet (Zoloft) 150 mg PO DAILY 01/20/19 Unknown History cetirizine 10 mg tablet (Zyrtec) 10 mg PO DAILY 01/31/19 Unknown History cvlfbxepecra-rnimrtkv-tjbtxm tablet 1 tab PO DAILY 01/31/19 Unknown History varenicline 0.5 mg (11)-1 mg (42) See Rx Instructions PO PER PKG DIR 01/31/19 Unknown History tablets in a dose pack pramipexole 0.5 mg tablet (Mirapex) 0.5 mg PO QHS #30 tabs 04/12/19 Unknown Rx lisinopril 5 mg tablet 5 mg PO DAILY 05/19/24 Unknown History montelukast 10 mg tablet 10 mg PO QHS 05/19/24 Unknown History omeprazole 20 mg capsule,delayed 20 mg PO DAILY 05/19/24 Unknown History release rivaroxaban 2.5 mg tablet (Xarelto) 2.5 mg PO BID 05/19/24 Unknown History rosuvastatin 10 mg tablet 10 mg PO DAILY 05/19/24 Unknown History sertraline 100 mg tablet 150 mg PO DAILY 05/19/24 Unknown History Allergy/AdvReac Type Severity Reaction Status Date / Time Sulfa (Sulfonamide Allergy Severe rash Verified 05/19/24 08:26 Antibiotics) Penicillins AdvReac Intermediate Rash Verified 05/13/19 09:42 Family History (Reviewed 05/13/19 @ 09:53 by Ester Hernandez [employer]NAGER, [employer]GER-[employer]) Mother Hypertension Malignant neoplasm of lung Father Diabetes Heart disease Osteoporosis Malignant lymphoma Brother Leukemia Surgical History (Reviewed 05/13/19 @ 09:53 by Ester Hernandez [employer]M MANAGER, [employer]M MANAGER-C) History of breast biopsy History of cholecystectomy Social History (Updated 05/13/19 @ 10:49 by Ester Hernandez NP, [employer]GER-[employer]) Smoking Status: Current every day smoker ROS Constitutional Constitutional: Denies anorexia, chills or fever(s) Eyes Eyes: Denies blurry vision, change in vision or double vision ENT HEENT: Denies dysphagia, nasal congestion or sore throat Cardiovascular Cardiovascular: Denies chest pain, claudication or palpitations Respiratory/Chest Respiratory/Chest: Denies cough, shortness of breath at rest or wheezing Gastrointestinal Gastrointestinal: Denies abdominal pain, constipation, diarrhea, nausea or vomiting Genitourinary Genitourinary: Denies dysuria, hematuria or urinary urgency Musculoskeletal Musculoskeletal: Denies joint pain, joint stiffness or joint swelling Integumentary Integumentary: Denies jaundice, lesions, pruritus or rash Neurologic Neurologic: Denies dizziness, numbness or seizures Psychiatric Psychiatric: Reports anxiety and depression Endocrine Endocrinology: Denies cold intolerance, heat intolerance, polydipsia or polyuria Hematologic/Lymphatic Hematologic/Lymphatic: Denies easy bleeding or easy bruising Vital Signs Vital Signs Vital Signs: 05/19/24 08:31 Temperature 98.1 F Temperature Source Temporal Pulse Rate 98 Respiratory Rate 18 Blood Pressure 150/87 H Blood Pressure Mean 108 Blood Pressure Source Monitor Blood Pressure Position Sitting Blood Pressure Location Left Arm Oxygen Delivery Method Room Air Weight Weight: 64.41 kg Body Mass Index (BMI) 21.6 Physical Exam Const alert, oriented x3 and no apparent distress General Appearance: cooperative HEENT normocephalic Eyes General Eye: normal appearance of both eyes Neck General: normal visual inspection Lymph Lymphatic: no lymphadenopathy noted and no lymphedema noted Resp normal respiratory effort Cardio regular rate and regular rhythm Extremity Extremity Narrative: Right lower extremity: Vascular: DP and PT pulses palpable. CFT less than 4 seconds to the digits. Normal temperature gradient. Hair growth present to digits. Neurologic: Gross sensation intact, epicritic sensation intact without focal deficit noted. Musculoskeletal: Muscle strength 5 of 5 age-appropriate. Full, smooth, pain-kailee e range of motion of the ankle joint, subtalar joint, midtarsal joint, and first metatarsal phalangeal joint. There is pain to palpation about the ulcerative site of the dorsal aspect of the right foot. No pain to palpation of calf. Dermatologic: There is a large superficial ulceration to the dorsal aspect of the right forefoot involving the bases of the digits 1 through 4 secondary to hot grease burn. There is dense thickened yellow and black fibrotic tissue with areas of dried crust secondary to serosanguineous drainage. No erythema, no purulence, no malodor. No signs of infection. There is some evidence of peeling skin in areas which have healed secondary to her burn. Skin no rashes or lesions noted, skin turgor normal and no jaundice Neuro moves all extremities Debridement Note Debridement Note Wound debrided: Right dorsal foot Laterality: Right Wound Grade/Stage: Adler stage I Type of Debridement: Excisional debridement Anesthesia Used: 5% Lidocaine Gel Depth: Down to and including healthy tissue and in the subcutaneous layer Percentage of wound debrided: 100 Instrument Used: 7mm curette Tissue Removed: Fibrous, devitalized subcutaneous, biofilm, slough Severity: Fat Layer Exposed Amount of bleeding with debridement: Mild Bleeding Controlled with: Compression and gauze Patient tolerated procedure: Patient tolerated procedure well Post-Debridement Measurements and Additional Note: Post-Debridement Measurements/Treatment - Nurse 1 - General Ulcer Assessment Start: 05/19/24 08:29 Freq: Status: Active Protocol: [facility] Activity Type Activity Date Activity User E-sign Co-sign Detail Recorded Client Recorded Date Recorded By Document 05/19/24 08:31 ROSALBA [id number] 05/19/24 08:37 DS 05/19/24 08:31 - Today's Visit Information Type of service Initial Visit Arrival Mode Ambulatory Patient Identification Verified (Name & Yes ) Patient Requires Transmission-Based No Precautions Safety Precautions Fall Prevention Height and Weight Height 5 ft 8 in Weight 64.41 kg Weight in Pounds 142.0 lbs Weight Measurement Method Estimated by Patient Body Mass Index (BMI) 21.6 BMI Classification Normal BSA - Karen 1.77 Vital Signs Temperature (97.8 F-99.1 F) 98.1 F Temperature Source Temporal Pulse Rate (60-100) 98 Pulse Location Monitor Respiratory Rate (12-18) 18 Respiratory rate source Observation Oxygen Delivery Method Room Air Blood Pressure (90/60-120/80) 150/87 H Blood Pressure Mean 108 Source Monitor Position Sitting Blood Pressure Location Left Arm Pain Scale: 0-10 Numeric Is Patient Pain Free? No right dorsal foot -Description Aching -Intensity 6 -Duration (hours) Chronic -Pain Behavior No Change in Behavior -Alleviating Factors/Interventions Will continue to monitor, Emotional Support Lower Extremity Assessment/ Foot Assessment/ Toe Nail Assessment Right -Posterior Tibial Palpable Yes -Dorsalis Pedis Palpable Yes -Extremity Color Red -Hair Growth on Legs Yes -Hair Growth on Toes Yes -Temperature of Extremity Warm -Capillary Refill Less than 3 Seconds Teaching Assessment Preferences Verbal,Written, Demonstration Barriers to Learning Unable to Comprehend Readiness To Learn Excellent Willingness to Engage in Self Management High Activies Readiness to Engage in Self Management High Activities Anxiety Level Calm Cooperation Cooperative Perception Coherent Interest in Health Problem Asks Questions Education Importance Acknowledges Need Does Patient Smoke tobacco or other Yes substances Smoking Status Current every day smoker Is Patient Diabetic No Functional Assessment Recent Decline in Ability to Perform Denies Any Declines Culture/Rastafarian/Health And Nutrition Specialist Cultural/Rastafarian Needs that may affect No Treatment Plan Teaching: Wound Center *Welcome to the Wound Center -Person Taught Patient -Teaching Method Discussion -Response to teaching Verbalize Understanding - Nurse 1 - General Ulcer Measurement Start: 05/19/24 08:29 Freq: Status: Active Protocol: Activity Type Activity Date Activity User E-sign Co-sign Detail Recorded Client Recorded Date Recorded By Document 05/19/24 08:40 DS [id number] 05/19/24 08:41 DS 05/19/24 08:40 Wound Center Nurse 1 right dorsal foot -Current Size (cm) - Length 7.5 -Current Size (cm) - Width 9.0 -Current Size (cm) - Depth 0.1 -Total Square Cm 67.50 -Date of Last Picture (Recall this 05/19/24 field) -Photo Taken Yes -Tunneling No -Undermining/Tunneling No -Circular Undermining No -Necrosis Amt Large (67-100%) -Necrotic Tissue Type Adherent Slough -Texture (Sabina-wound Skin Appearance) Assessed -Moisture (Sabina-wound Skin Appearance) Assessed -Color (Sabina-wound Skin Appearance) Assessed -Temperature (Sabina-wound Skin No Abnormality Appearance) (Pt Warm) -Tenderness on Palpation (Sabina-wound No Skin Appearance) -Ulcer Cleansing Soap and Water -Anesthetic Used 5% Lidocaine Gel Right Calf (cm) 34.5 Right Ankle (cm) 21.5 - Nurse 2 - General Ulcer CM Notes Start: 05/19/24 08:29 Freq: Status: Active Protocol: Activity Type Activity Date Activity User E-sign Co-sign Detail Recorded Client Recorded Date Recorded By Document 05/19/24 09:06 [facility] [id number] 05/19/24 09:19 [facility] 05/19/24 09:06 Wound Center Nurse 2 right dorsal foot -Time 09:06 -Correct Patient Yes -Correct Side, Site, Position Yes -Correct Procedure Yes -Procedure Performed Yes -Type of Procedure Debridement -Clinical Debridement Subcutaneous -Tissue Removed Subcutaneous -Post Debridement (cm) - Length 9.0 -Post Debridement (cm) - Width 5.2 -Post Debridement (cm) - Depth 0.1 -Total Square (Post) (cm) 46.80 -Area of Debridement (cm) - Length 9.0 -Area of Debridement (cm) - Width 5.2 -Total Square (Area) (cm) 46.80 -Tunneling No -Undermining/Tunneling No -Circular Undermining No -Wound/Ulcer Outcome Not Healed -Ulcer Cleansing Rinsed/ Irrigated with Saline -Foul Odor after Cleansing No -Bioengineered Tissue No -Bleeding Controlled with Pressure -Treatment Response Procedure Tolerated Well -Debridement - Subq, 1st 20sq cm Yes Pain Scale: 0-10 Numeric Is Patient Pain Free? Yes Assessment/Plan Assessment/Plan (1) Non-healing ulcer of right foot with fat layer exposed: CODE(S): L97.512 - Non-pressure chronic ulcer of other part of right foot with fat layer exposed (2) Burn of second degree of right foot, initial encounter: CODE(S): T25.221A - Burn of second degree of right foot, initial encounter (3) Peripheral vascular disease, unspecified: CODE(S): I73.9 - Peripheral vascular disease, unspecified (4) Pain in right foot: CODE(S): M79.671 - Pain in right foot (5) Nicotine dependence, cigarettes, uncomplicated: CODE(S): F17.210 - Nicotine dependence, cigarettes, uncomplicated PLAN: Plan Patient seen and evaluated Predebridement: 8.9 cm x 5.1 cm x 0.1 cm Ulceration to the dorsal aspect of the right foot underwent sharp excisional debridement as noted in the clinical panel above. Postdebridement measurement 9.0 cm x 5.2 cm x 0.1 cm. No signs of infection. Santyl applied to the ulcerative base and dressed with moistened 4 x 4 and dry sterile dressing. Patient is instructed to change dressing daily to aid in debridement of the thickened fibrotic tissue. Dressing supplies were ordered for patient Rx: Santyl. Will apply daily as instructed. Will apply for advanced wound care product for application at next visit. Discussed smoking cessation today ([id number]) was discussed in detail. Discussed her previous history of vascular intervention in 2017 with stent placement. Discussed risks and complications of continued smoking with harm to vascular stent and current wound healing. Benefits of cessation were also discussed. Encouraged smoking cessation discussion with PCP and aids were offered. Following our discussion patient voices understanding of the continued risks of smoking. 3 minutes was spent on discussion today. Discussed signs and symptoms of infection. Discussed that patient develops redness around the ulcerative site that spreads across the foot or moves up the leg, or if she experiences purulent drainage from the wound site, increasing foul odor from wound, or if she experiences fever greater than 101 degree accompanied by nausea, vomiting, chills that these are signs of a progressing infection and she should report to the ED to receive IV antibiotics and further evaluation. Patient is understanding of this today. The following work up and care recommendations were made: Dressing: Santyl and dry sterile dressing. Change daily Wash: Soap and water, pat area dry. Tissue growth optimization: Santyl Offload: Continue dressing changes and ensure shoe gear does not rub on top of foot. Vascular: DP and PT pulses palpable with adequate capillary fill time. Patient does have history of stent placement right iliac artery in 2017. Currently vascular status is not impacting healing. Edema: No edema noted. Infection: No signs of infection. Pain: May take Tylenol extra strength for pain/discomfort Host factors: COPD and continued nicotine dependence, PVD. I answered all the patient's questions. To return to the wound healing center in 1 week or call sooner if the patient has any questions or concerns.
--- NOTE | 2024-05-20 10:49 | WC ---
PHOTO 05/19/24 RIGHT DORSAL FOOT (I)
[2024-05-26 09:38] VITALS: BP 147/77; PULSE 98; RESP 18; TEMP 36.9; BMI 21.6
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
--- NOTE | 2024-05-31 11:39 | WC ---
PHOTO 05/26/24 RIGHT DORSAL FOOT
[2024-06-02 09:37] VITALS: BP 141/92; PULSE 90; RESP 18; TEMP 36.4; BMI 21.6
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
== END 2024-06-14 23:59 | disposition home or self-care (01) ==
LOC: WC 09:30
PROVIDERS: PCP Family Medicine; Referring Provider Family Medicine; Visit Provider Student in an Organized Health Care Education/Training Program
DX: I73.9 Peripheral vascular disease, unspecified (principal); L97.512 Non-pressure chronic ulcer of other part of right foot with fat layer exposed; J44.9 Chronic obstructive pulmonary disease, unspecified; Z79.02 Long term (current) use of antithrombotics/antiplatelets; F17.210 Nicotine dependence, cigarettes, uncomplicated; T25.221A Burn of second degree of right foot, initial encounter; Z79.01 Long term (current) use of anticoagulants; K21.9 Gastro-esophageal reflux disease without esophagitis; Z79.51 Long term (current) use of inhaled steroids; Z79.899 Other long term (current) drug therapy; X10.2XXA Contact with fats and cooking oils, initial encounter; Y93.G3 Activity, cooking and baking; M79.671 Pain in right foot
CPT/HCPCS: 11042; 11045; 15275; 15276; 99213; Q4121; G0463

== ENCOUNTER 2024-07-14 11:15 | Outpatient (RCR) | payer MEDICAID, SELFPAY ==
[2024-06-15 00:51] VITALS: BP 141/92; PULSE 90; RESP 18; TEMP 36.4; BMI 21.6
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
[2024-06-16 10:04] VITALS: BP 108/65; PULSE 86; RESP 16; TEMP 36.7; BMI 21.6
[2024-06-23 09:43] VITALS: BP 139/58; RESP 18; TEMP 36.7; BMI 21.6
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
[2024-07-07 11:01] VITALS: BP 127/78; PULSE 87; RESP 18; TEMP 36.3; BMI 21.6
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
[2024-07-14 11:31] VITALS: BP 144/79; PULSE 85; RESP 18; TEMP 36.3; BMI 21.6
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
== END 2024-07-15 23:59 | disposition home or self-care (01) ==
LOC: WC 11:15
PROVIDERS: PCP Family Medicine; Referring Provider Family Medicine; Visit Provider Student in an Organized Health Care Education/Training Program
DX: I73.9 Peripheral vascular disease, unspecified (principal); L97.512 Non-pressure chronic ulcer of other part of right foot with fat layer exposed; J44.9 Chronic obstructive pulmonary disease, unspecified; F17.210 Nicotine dependence, cigarettes, uncomplicated; T25.221A Burn of second degree of right foot, initial encounter
CPT/HCPCS: 15275; 99213; Q4121; G0463

== ENCOUNTER 2024-08-11 10:45 | Outpatient (RCR) | payer MEDICAID, SELFPAY ==
[2024-07-16 01:13] VITALS: BP 144/79; PULSE 85; RESP 18; TEMP 36.3; BMI 21.6
[2024-07-21 10:53] VITALS: BP 136/85; PULSE 90; RESP 16; TEMP 37.6; BMI 21.6
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
[2024-07-28 11:31] VITALS: BP 150/85; PULSE 87; RESP 18; TEMP 36.7; BMI 21.6
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
[2024-08-11 10:50] VITALS: BP 135/80; PULSE 84; RESP 18; TEMP 36.1; BMI 21.6
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
--- NOTE | 2024-08-12 09:26 | WC ---
PHOTO 08/11/24 RIGHT DORSAL
== END 2024-08-12 11:07 | disposition home or self-care (01) ==
LOC: WC 10:45
PROVIDERS: PCP Family Medicine; Referring Provider Family Medicine; Visit Provider Student in an Organized Health Care Education/Training Program
DX: I73.9 Peripheral vascular disease, unspecified (principal); L97.512 Non-pressure chronic ulcer of other part of right foot with fat layer exposed; L97.511 Non-pressure chronic ulcer of other part of right foot limited to breakdown of skin; J44.9 Chronic obstructive pulmonary disease, unspecified; K21.9 Gastro-esophageal reflux disease without esophagitis; F17.210 Nicotine dependence, cigarettes, uncomplicated; M79.671 Pain in right foot; T25.221A Burn of second degree of right foot, initial encounter; X10.2XXA Contact with fats and cooking oils, initial encounter
CPT/HCPCS: 11042; 97597; 99213; G0463

== ENCOUNTER → 2024-09-13 | Outpatient (CLI) | payer MEDICAID, SELFPAY | END | disposition home or self-care (01) | LOC: LABSPEC 12:13 | PROVIDERS: PCP Family Medicine; Visit Provider Family Medicine | DX: R30.0 Dysuria (principal) | CPT/HCPCS: 87086; 87088 ==

== ENCOUNTER → 2024-09-22 | Outpatient (CLI) | payer MEDICAID, SELFPAY ==
[2024-09-22 12:44] LABS: Absolute Lymphocyte Count 1.96 X10^3/uL (0.83-4.51); Absolute Neutrophil Count 5.6 X10^3/uL (2.0-7.7); Basophil# 0.07 X10^3/uL; Basophil% 0.8 % (0-1); Eosinophils% 1.2 % (0-5); Hematocrit 45.2 % (37-47); Hemoglobin 14.9 g/dL (12.0-15.0); Lymphocyte # 1.96 X10^3/ul (0.83-4.51); Lymphocyte % 23.4 % (19-41); Mean Corpuscular Hgb 30.5 pg (27.0-32.0); Mean Corpuscular Volume 92.4 fL (81-99); Monocyte# 0.56 X10^3/uL; Monocyte% 6.7 % (0-10); NRBC Flagged by Analyzer 0 % (0-5); Neutrophil # 5.64 X10^3/uL (2.7-7.7); Neutrophil % 67.5 % (47-70); Platelet Count 285 K/mm3 (150-450); RBC Distribution Width CV 13.4 % (11.6-14.6); RBC Distribution Width SD 45.3 fl (35.1-43.9); Red Blood Count 4.89 M/mm3 (4.2-5.4); White Blood Count 8.4 K/mm3 (4.4-11.0)
[2024-09-22 13:47] LABS: ALB/GLOB Ratio 1.5 RATIO (0.9-2.4); AST(SGOT) 32 U/L (<=31); Alanine Aminotransfer ALT/SGPT 25 U/L (<=34); Albumin, Serum 4.5 g/dL (3.4-4.8); Alkaline Phosphatase 96 U/L (35-104); Anion Gap 12 (5-15); BUN 17 mg/dL (4-19); BUN/Creat Ratio 33.5 RATIO (10-20); Calcium,Total 9.7 mg/dL (7.6-11.0); Carbon Dioxide 27.4 mmol/L (21.0-32.0); Chloride 100 mmol/L (98-108); Cholesterol 180 mg/dL (<=200); Creatinine, Serum 0.51 mg/dL (0.70-1.20); EST Glomerular Filtration Rate 105 (>60); Glucose 85 mg/dL (70-99); High Density Lipoprotein 67 mg/dL; Low Density Lipoprotein Calc. 83 mg/dL; Potassium 4.1 mmol/L (3.3-5.1); Protein, Total 7.5 g/dL (5.9-8.4); Sodium Level 140 mmol/L (133-145); Total Bilirubin 0.27 mg/dL (0.00-1.30); Triglycerides 149 mg/dL; Very Low Density Lipoprotein 30 mg/dL (5-40); cholesterol:hdl ratio screen 2.68
[2024-09-22 14:13] LABS: Iron 52 ug/dL (50-170); Iron Binding Capacity,Total 413 ug/dL (250-450); Iron Binding Capacity,Unsat 361 ug/dL (228-428)
[2024-09-22 14:19] LABS: Ferritin 50 ng/mL (22-378); Vitamin B12 399 pg/mL (180-914); Vitamin D,25 Hydroxy 32.8 ng/mL (30-100)
== END | disposition home or self-care (01) ==
LOC: LAB.FUTURE 08:34 → BFHLAB 09-23 09:06
PROVIDERS: PCP Family Medicine; Visit Provider Family Medicine
DX: Z00.00 Encounter for general adult medical examination without abnormal findings (principal); C53.9 Malignant neoplasm of cervix uteri, unspecified; J44.9 Chronic obstructive pulmonary disease, unspecified; R53.83 Other fatigue; I73.9 Peripheral vascular disease, unspecified; G25.81 Restless legs syndrome; F32.A Depression, unspecified; K58.9 Irritable bowel syndrome, unspecified; G54.0 Brachial plexus disorders; K21.9 Gastro-esophageal reflux disease without esophagitis; I10 Essential (primary) hypertension
CPT/HCPCS: 36415; 80053; 80061; 82306; 82607; 82728; 83540; 83550; 84443; 85025

== ENCOUNTER → 2024-10-07 | Outpatient (CLI) | payer MEDICAID, SELFPAY ==
--- NOTE | 2024-10-07 10:33 | BI_ITS ---
EXAM: SCRN MAMM (CAD)W/MONICA BILAT 10/07/2024 CLINICAL HISTORY: F, Age 64 y/o , SCREENING TECHNIQUE: Bilateral screening digital breast tomosynthesis with 2D and 3D images. Computer aided detection. COMPARISON: Prior exam(s) dated 08/04/2022. FINDINGS: TISSUE DENSITY: The breast tissue is composed of scattered area of fibroglandular density. Bilateral Breast Mammographic Findings: No significant masses, calcifications or other abnormalities are identified. BI/SCRN MAMM (CAD)W/MONICA BILAT IMPRESSION: Right Breast: BIRADS 1 NEGATIVE. Left Breast: BIRADS 1 NEGATIVE. OVERALL FINAL ASSESSMENT: BIRADS 1 NEGATIVE. RECOMMENDATION: Routine annual follow-up in 1 Year A letter with findings and recommendations will be mailed to the patient. Reading Location: [facility]
== END | disposition home or self-care (01) ==
LOC: OPBI 10:30
PROVIDERS: PCP Family Medicine; Referring Provider Family Medicine; Visit Provider Family Medicine
DX: Z12.31 Encounter for screening mammogram for malignant neoplasm of breast (principal)
CPT/HCPCS: 77063; 77067

== ENCOUNTER → 2025-04-24 | Outpatient (CLI) | payer MEDICAID, SELFPAY ==
--- NOTE | 2025-04-24 13:37 | CT_ITS ---
PROCEDURE: SINUS/FACIAL BONE 04/24/2025 REASON FOR EXAM: CHRONIC SINUSITIS TECHNIQUE: Procedure Code: CTSI Modality: CT Procedure: SINUS/FACIAL BONE Coronal and Sagittal reconstruction series were provided. One or more dose reduction techniques were used (e.g., Automated exposure control, adjustment of the mA and/or kV according to patient size, use of iterative reconstruction technique). RADIATION DOSE SUMMARY: CTDlvol: 33.06 mGy DLP: 759.47 mGycm COMPARISON: None FINDINGS: Frontal: Unremarkable Ethmoid: Unremarkable Sphenoid: Unremarkable Maxillary: Unremarkable Turbinates: Unremarkable Nasal Septum: Midline. Mastoids/Middle Ears: Unremarkable CT/Sinus/Facial Bone IMPRESSION: Unremarkable examination. Reading Location: [place] [id number]
== END | disposition home or self-care (01) ==
LOC: CT 13:36
PROVIDERS: PCP Family Medicine; Referring Provider Otolaryngology; Visit Provider Otolaryngology
DX: J32.9 Chronic sinusitis, unspecified (principal)
CPT/HCPCS: 70486